=== PATIENT | female | born 1945 | race Caucasian/White ===

== ENCOUNTER 2023-05-21 13:18 | Emergency (ER) | payer MEDICARE ==
[~2023-05-21] VITALS: Ht 160 cm; Wt 73.2 kg
[2023-05-21] MEDS ORDERED: GABA-1216 PO (13:35)
[2023-05-21] MEDS ORDERED: CALC-1038 PO (13:36)
[2023-05-21 13:37] VITALS: TEMP 98.3
[2023-05-21 16:08] VITALS: BP 138/71; PULSE 74; RESP 16
== END 2023-05-21 16:13 | disposition home or self-care (01) ==
LOC: EMS 13:19
DX: S70.01XA Contusion of right hip, initial encounter (principal); Z96.649 Presence of unspecified artificial hip joint; W06.XXXA Fall from bed, initial encounter; Y93.89 Activity, other specified; Y92.89 Other specified places as the place of occurrence of the external cause; Y99.8 Other external cause status
CPT/HCPCS: 73502; 99284

== ENCOUNTER 2023-07-22 10:17 | Emergency (ER) | payer MEDICARE, OTHER ==
[~2023-07-22] VITALS: Ht 157.5 cm; Wt 79.5 kg
[~2023-07-22 10:17] MED LIST: CALC-1038 PO; GABA-1216 PO
[2023-07-22 10:26] VITALS: TEMP 98
[2023-07-22 11:33] VITALS: BP 133/60; PULSE 72; RESP 16
== END 2023-07-22 16:39 | disposition home or self-care (01) ==
LOC: EMS 10:23
DX: S40.011A Contusion of right shoulder, initial encounter (principal); S70.01XA Contusion of right hip, initial encounter; Z96.641 Presence of right artificial hip joint; W19.XXXA Unspecified fall, initial encounter; Y93.89 Activity, other specified; Y92.89 Other specified places as the place of occurrence of the external cause; Y99.8 Other external cause status
CPT/HCPCS: 73502; 99284

== ENCOUNTER 2023-09-21 16:10 | Emergency (ER) | payer MEDICARE, OTHER ==
[~2023-09-21] VITALS: Ht 157.5 cm; Wt 63.6 kg
[~2023-09-21 16:10] MED LIST changes: +AMOX1TAB16 PO; +ASPI-1450 PO
[2023-09-21 16:19] VITALS: TEMP 98.5
[2023-09-21 17:12] LABS: COVID AG,FIA SOURCE NASAL SWAB
[2023-09-21 17:46] LABS: INFLUENZA TYPE A NEGATIVE FOR TYPE A (NEGATIVE); INFLUENZA TYPE B NEGATIVE FOR TYPE B (NEGATIVE); SARS-COV2 (COVID) ANTIGEN,FIA Negative (Negative)
[2023-09-21 18:54] VITALS: BP 115/64; PULSE 78; RESP 16
== END 2023-09-21 19:18 | disposition home or self-care (01) ==
LOC: EMS 16:10
DX: R07.89 Other chest pain (principal); Z91.040 Latex allergy status; Z96.649 Presence of unspecified artificial hip joint; Z98.890 Other specified postprocedural states; Z20.822 Contact with and (suspected) exposure to COVID-19
CPT/HCPCS: 71101; 87804; 99284; Z7502

== ENCOUNTER 2023-10-04 18:35 | Emergency (ER) | payer MEDICARE, OTHER ==
[~2023-10-04] VITALS: Ht 160 cm; Wt 72.3 kg
[2023-10-04 19:04] VITALS: TEMP 98.4
[2023-10-04 21:24] LABS: INFLUENZA A-RTPCR,COMBO NEGATIVE (NEGATIVE); INFLUENZA B-RTPCR,COMBO NEGATIVE (NEGATIVE); RESPIRATORY SYNCYTIAL VRS-PCR NEGATIVE (NEGATIVE); SARS COVID19 RTPCR, COMBO NEGATIVE (NEGATIVE)
[2023-10-04 22:28] VITALS: BP 117/61; PULSE 77; RESP 16
== END 2023-10-05 01:42 | disposition home or self-care (01) ==
LOC: EMS 18:45
DX: R07.89 Other chest pain (principal); Z91.040 Latex allergy status; Z20.822 Contact with and (suspected) exposure to COVID-19
CPT/HCPCS: 99284; 0241U; 71101; Z7502

== ENCOUNTER 2024-07-04 16:41 | Emergency (ER) | payer MEDICARE, OTHER ==
[~2024-07-04] VITALS: Ht 160 cm; Wt 61.8 kg
[~2024-07-04 16:41] MED LIST changes: +AMOX-457 PO; -AMOX1TAB16 PO
[2024-07-04 21:35] VITALS: BP 104/49; PULSE 74; RESP 16; TEMP 97.5; O2SAT 100
[2024-07-04 23:07] LABS: TROPONIN I-HIGH SENSITIVITY 6 ng/L (<51)
== END 2024-07-05 01:12 | disposition home or self-care (01) ==
LOC: EMS 16:44
DX: F41.9 Anxiety disorder, unspecified (principal); M19.90 Unspecified osteoarthritis, unspecified site; Z79.82 Long term (current) use of aspirin; Z79.899 Other long term (current) drug therapy
CPT/HCPCS: 84484; 93005; 99284